=== PATIENT | female | born 1960 | race Caucasian/White ===

== ENCOUNTER 2016-06-11 08:58 | Outpatient (CLI) ==
[2016-06-11 09:12] LABS: BASOPHILS % (AUTO) 0.3 % (0.0-3.0); EOSINOPHILS # (AUTO) 0.2 K/ul (0.0-0.7); EOSINOPHILS % (AUTO) 3.7 % (0.0-7.0); HEMATOCRIT 40.8 % (37.0-47.0); HEMOGLOBIN 13.6 g/dl (12.0-16.0); IMMATURE GRANULOCYTE % (AUTO) 0.3 % (0.0-5.0); LYMPHOCYTES # (AUTO) 3.5 K/uL (0.60-3.4); MEAN CORPUSCULAR HEMOGLOBIN 26.8 pg (27.0-31.0); MEAN CORPUSCULAR HGB CONC 33.3 (31.8-35.4); MEAN CORPUSCULAR VOLUME 80.5 fl (81.0-99.0); MONOCYTES # (AUTO) 0.5 K/uL (0.4-2.0); MONOCYTES % (AUTO) 6.9 (0-10); NEUTROPHILS # (AUTO) 2.3 K/ul (2.0-6.9); NEUTROPHILS % (AUTO) 34.8; PLATELET COUNT 236 10^3/uL (140-440); RED BLOOD COUNT 5.07 10^6/ul (4.20-5.40); WHITE BLOOD COUNT 6.48 K/ul (4.6-10.2)
[2016-06-11 09:55] LABS: ALANINE AMINOTRANSFERASE 34 U/L (12-78); ALBUMIN 3.4 g/dL (3.4-5.0); ALKALINE PHOSPHATASE 97 U/L (42-98); ANION GAP 13.5; ASPARTATE AMINO TRANSFERASE 37 U/L (15-37); BILIRUBIN,TOTAL 0.39 mg/dL (0.00-1.20); BLOOD UREA NITROGEN 13 mg/dL (7-18); BUN/CREATININE RATIO 24.52; CALCIUM 9.9 mg/dL (8.2-10.2); CARBON DIOXIDE 24 mmol/L (21-32); CHLORIDE 109 mmol/L (98-107); CHOL/HDL RATIO 3.7 (4.5-5.5); CHOLESTEROL 163 mg/dL (0-200); CREATININE 0.53 mg/dL (0.60-1.30); GLUCOSE 121 mg/dL (70-110); HDL CHOLESTEROL 44 mg/dL (35-80); POTASSIUM 4.5 mmol/L (3.5-5.10); SODIUM 142 mmol/L (136-145); TOTAL PROTEIN 6.8 g/dL (6.4-8.2); TRIGLYCERIDES 76 mg/dL (30-150); VLDL CHOLESTEROL 15 mg/dL (2-30)
== END 2016-06-11 08:59 | disposition home or self-care (01) ==
LOC: LAB 08:58
PROVIDERS: ATTEND Nurse Practitioner Family
DX: Z00.00 Encounter for general adult medical examination without abnormal findings (principal); I10 Essential (primary) hypertension; E05.00 Thyrotoxicosis with diffuse goiter without thyrotoxic crisis or storm
CPT/HCPCS: 36415; 80053; 80061; 84443; 85025

== ENCOUNTER 2016-08-12 07:43 | Outpatient (CLI) ==
--- NOTE | 2016-08-16 08:21 | MAMMO ---
EXAM: Bilateral digital screening mammogram History: Screening. Comparison: Bilateral mammogram 07/30/2011 Findings: MLO and CC views of bilateral breasts demonstrate scattered fibroglandular breast parench yma. Stable benign bilateral breast calcifications. There are no dominant masses, no suspicious mi crocalcifications and no architectural distortions Impression: Benign stable mammogram. Recommend followup routine screening mammography in 1 year. BIRADS 2
== END 2016-08-12 07:44 | disposition home or self-care (01) ==
LOC: RAD 07:43
PROVIDERS: ATTEND Nurse Practitioner Family
DX: Z12.31 Encounter for screening mammogram for malignant neoplasm of breast (principal)

== ENCOUNTER 2017-03-04 15:36 | Outpatient (CLI) ==
[2017-03-04 16:15] LABS: ALBUMIN/GLOBULIN RATIO 1.18; ANION GAP 13.7; BILIRUBIN,TOTAL 0.58 mg/dL (0.00-1.20); BUN/CREATININE RATIO 20.58; CALCIUM 9.3 mg/dL (8.2-10.2); CREATININE 0.68 mg/dL (0.60-1.30); POTASSIUM 3.7 mmol/L (3.5-5.10); TOTAL PROTEIN 7.4 g/dL (6.4-8.2)
== END 2017-03-04 15:37 | disposition home or self-care (01) ==
LOC: OUTPT 15:36
PROVIDERS: ATTEND Nurse Practitioner Family
DX: Z79.899 Other long term (current) drug therapy (principal)
CPT/HCPCS: 36415; 80053

== ENCOUNTER 2017-06-09 09:45 | Outpatient (CLI) | END 2017-06-09 09:46 | disposition home or self-care (01) | LOC: LAB 09:45 → RHC-LAB 09:46 | PROVIDERS: ATTEND Nurse Practitioner Family | DX: R73.9 Hyperglycemia, unspecified (principal); Z00.00 Encounter for general adult medical examination without abnormal findings; E05.00 Thyrotoxicosis with diffuse goiter without thyrotoxic crisis or storm | CPT/HCPCS: 36415; 80053; 80061; 83036; 84443; 85025 ==

== ENCOUNTER 2017-09-19 09:33 | Outpatient (CLI) | END 2017-09-19 09:34 | disposition home or self-care (01) | LOC: RHC-LAB 09:33 | PROVIDERS: ATTEND Nurse Practitioner Family | DX: E11.9 Type 2 diabetes mellitus without complications (principal); I10 Essential (primary) hypertension; E78.5 Hyperlipidemia, unspecified | CPT/HCPCS: 36415; 80053; 80061; 83037 ==

== ENCOUNTER 2017-12-20 10:20 | Outpatient (CLI) | END 2017-12-20 10:21 | disposition home or self-care (01) | LOC: RHC-LAB 10:20 | PROVIDERS: ATTEND Nurse Practitioner Family | DX: E11.9 Type 2 diabetes mellitus without complications (principal); I10 Essential (primary) hypertension; E78.5 Hyperlipidemia, unspecified | CPT/HCPCS: 36415; 80053; 80061; 83036 ==

== ENCOUNTER 2018-01-10 11:05 | Outpatient (CLI) ==
--- NOTE | 2018-01-10 11:39 | DI ---
EXAM: Three views of the left elbow. History: Left elbow pain. Findings: No acute fracture or dislocation. No abnormal calcifications or radiopaque foreign bodies . Joint spaces are preserved. No joint effusion. Mild posterior soft tissue swelling. Impression: No acute osseous abnormality. Mild posterior soft tissue swelling
--- NOTE | 2018-01-11 08:52 | MAMMO ---
EXAM: Bilateral digital screening mammogram (2-D and 3-D) History: Screening Comparison: Bilateral mammogram 08/12/2016 Findings: MLO and CC views of bilateral breasts demonstrate scattered fibroglandular breast parenchy ma. CAD was reviewed by the radiologist. Tomosynthesis was performed. There are no dominant masses , no suspicious microcalcifications and no architectural distortions Impression: Stable negative mammogram. Recommend followup routine screening mammography in 1 year. BIRADS 1
== END 2018-01-10 11:06 | disposition home or self-care (01) ==
LOC: RAD 11:05
PROVIDERS: ATTEND Emergency Medicine
DX: Z12.31 Encounter for screening mammogram for malignant neoplasm of breast (principal); M25.522 Pain in left elbow
CPT/HCPCS: 77067

== ENCOUNTER 2018-02-07 10:49 | Outpatient (CLI) | END 2018-02-07 10:50 | disposition home or self-care (01) | LOC: RHC-LAB 10:49 | PROVIDERS: ATTEND Nurse Practitioner Family | DX: E11.9 Type 2 diabetes mellitus without complications (principal); I10 Essential (primary) hypertension; E78.5 Hyperlipidemia, unspecified; E78.1 Pure hyperglyceridemia | CPT/HCPCS: 36415; 80053; 80061 ==

== ENCOUNTER 2018-05-10 15:51 | Outpatient (CLI) | END 2018-05-10 15:52 | disposition home or self-care (01) | LOC: RHC-LAB 15:51 | PROVIDERS: ATTEND Nurse Practitioner Family | DX: E05.00 Thyrotoxicosis with diffuse goiter without thyrotoxic crisis or storm (principal); I10 Essential (primary) hypertension | CPT/HCPCS: 36415; 84443; 85025 ==

== ENCOUNTER 2018-08-11 16:22 | Outpatient (CLI) | END 2018-08-11 16:23 | disposition home or self-care (01) | LOC: RHC-LAB 16:22 → FCC-LAB 16:23 | PROVIDERS: ATTEND Family Medicine | DX: E11.9 Type 2 diabetes mellitus without complications (principal); R25.2 Cramp and spasm; E03.9 Hypothyroidism, unspecified | CPT/HCPCS: 36415; 80053; 82043; 83037; 83735; 84439; 84443; 84481; 85025; 85651 ==

== ENCOUNTER 2018-09-27 11:51 | Outpatient (CLI) | END 2018-09-27 11:52 | disposition home or self-care (01) | LOC: RHC-LAB 11:51 → FCC-LAB 11:52 | PROVIDERS: ATTEND Family Medicine | DX: G25.81 Restless legs syndrome (principal) | CPT/HCPCS: 36415; 82607 ==